=== PATIENT | female | born 1955 | race Caucasian/White ===

== ENCOUNTER 2017-03-05 19:56 | Emergency (ER) | payer OTHER ==
[~2017-03-05 19:56] MED LIST: ALLEGRA ALLERG180 M1 PO; ASPIRIN325 M3 PO; BIOTIN PO; C-PAP; ESTRACE1 M3 PO; IBUPROFEN800 M1 PO; MIRALAX17 G2 PO; MOBIC15 M2 PO; NEURONTIN100 M1 PO; NORCO 5-325 TA1 EACH PO; OMEPRAZOLE20 M4 PO; PRINIVIL5 M1 PO; ROXICODONE5 M2 PO; TYLENOL325 M2 PO; ULTRAM50 M1 PO; VENLAFAXINE HCL75 M3 PO; VITAMIN D31000 UNI4 PO
[2017-03-05] MEDS ORDERED: FLAGYL500 M1 PO (20:15)
[2017-03-05] MEDS ORDERED: DIFLUCAN100 M1 PO (20:16)
== END 2017-03-05 21:53 ==
LOC: EDMED 19:56
DX: S81.812A Laceration without foreign body, left lower leg, initial encounter (principal); I10 Essential (primary) hypertension; Z79.899 Other long term (current) drug therapy; W22.8XXA Striking against or struck by other objects, initial encounter; Y92.019 Unspecified place in single-family (private) house as the place of occurrence of the external cause